=== PATIENT | female | born 2000 | race Caucasian/White ===

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

== ENCOUNTER 2019-05-27 15:58 | Emergency (ER) | payer OTHER ==
[~2019-05-27] VITALS: Ht 172.7 cm; Wt 58.2 kg
[~2019-05-27 15:58] MED LIST changes: +AUGMENTIN250 MG/5 M PO; +PYRIDIUM200 MG PO; +ZOFRAN4 MG PO; +ZOFRAN4 MG SL
--- OUTSIDE RECORDS SUMMARY | 2019-05-27 16:00 | XMS ---
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 Care History Medical/Surgical 12/11/2018 [facility] SET UP APT WITH [facility] FOR PATIENT TO ESTABLISH CARE ON Monday12/17/18 @ 1:45PM. - PATIENT IS AWARE OF THE APT AND AGREED TO THE APT SCHEDULED. E.D. VISIT COUNT (12 MO.) 3 [facility] TOTAL 3 NOTE: Visits indicate total known visits. ED/UCC VISIT TRACKING (12 MO.) 05/27/2019 15:58 [facility] [place] TYPE: Emergency COMPLAINT: - FLANK PAIN 01/25/2019 09:14 [facility] [place] TYPE: Emergency COMPLAINT: - R FLANK PAIN DIAGNOSES: - Acquired absence of other specified parts of digestive tract - Unspecified abdominal pain - Personal history of urinary calculi - Tubulo-interstitial nephritis, not specified as acute or chronic 12/10/2018 10:52 [facility] [place] TYPE: Emergency COMPLAINT: - FLU SYMPTOMS DIAGNOSES: - Personal history of urinary calculi - Acute pharyngitis, unspecified INPATIENT VISIT TRACKING (12 MO.) No inpatient visits to display in this time frame [email or web address]
[2019-05-27] MEDS ORDERED: NORCO 5-325 TA1 EACH PO (19:02)
[2019-05-27] MEDS ORDERED: ZOFRAN4 MG PO (19:02)
[2019-05-27] MEDS ORDERED: FLOMAX0.4 MG PO (19:02)
== END 2019-05-27 19:22 | disposition home or self-care (01) ==
LOC: ED 15:58
DX: N13.2 Hydronephrosis with renal and ureteral calculous obstruction (principal); Z87.442 Personal history of urinary calculi; Z90.49 Acquired absence of other specified parts of digestive tract
CPT/HCPCS: 76775; 80053; 81001; 84703; 85025; 96361; 96374; 96375; 99284-25; J1885; J2270; J2405; J7030

== ENCOUNTER 2021-04-01 08:34 | Emergency (ER) | payer OTHER ==
[~2021-04-01] VITALS: Ht 172.7 cm; Wt 58.1 kg
[2021-04-01] MEDS ORDERED: VENTOLIN HFA18 GM INH (10:44)
== END 2021-04-01 10:56 | disposition home or self-care (01) ==
LOC: ED 08:34
DX: J06.9 Acute upper respiratory infection, unspecified (principal); Z20.822 Contact with and (suspected) exposure to COVID-19
CPT/HCPCS: 71045; 99283-25; C9803; U0003

== ENCOUNTER 2024-06-13 20:31 | Emergency (ER) | payer OTHER ==
[~2024-06-13] VITALS: Ht 172.7 cm; Wt 67.0 kg
[~2024-06-13 20:31] MED LIST changes: +VENTOLIN HFA18 GM INH
[2024-06-13 21:07] LABS: BASOPHILS 0.3 % (0-2); EOSINOPHILS 0.6 % (0-6); HEMATOCRIT 38.3 % (35.0-50.0); HEMOGLOBIN 12.7 g/dL (12.0-18.0); LYMPHOCYTES 26.7 % (24-44); MCH 28.4 (27-36); MCHC 33.1 g/dl (30-36); MONOCYTES 7.9 % (0-12); NEUTROPHILS 64.5 % (39-80); PLATELET COUNT 230 K/uL (140-440); RBC 4.45 M/ul (4.3-5.7); RDW 14.7 (10.5-15.0)
[2024-06-13 21:27] LABS: ALBUMIN 4.3 g/dL (3.4-5.0); ALBUMIN/GLOBULIN RATIO 1.16 (1.1-2.4); ANION GAP 14.2 (7-21); BILIRUBIN, TOTAL 0.4 ng/dL (0.2-1.0); BUN/CREATININE RATIO 14.6 (6.0-28.6); CALCIUM 8.4 mg/dL (8.5-10.1); CREATININE, SERUM 0.89 mg/dL (0.55-1.02); MAGNESIUM 1.9 mg/dL (1.8-2.4); POTASSIUM 3.2 mmol/L (3.5-5.1)
[2024-06-13] MEDS ORDERED: FAMOTIDINE 20 MG/ 2 ML VIAL IV ONE (21:30)
[2024-06-13] MEDS ORDERED: ondansetron HCL 4 MG/2 ML VIAL IV ONE (21:30)
[2024-06-13] MEDS ORDERED: ASPIRIN 81 MG CHEW PO ONE (21:45)
[2024-06-13] MEDS ORDERED: LACTATED RINGER'S 1,000 ML IV ONE (21:45)
[2024-06-13 22:12] VITALS: BP 134/81
--- NOTE | 2024-06-17 09:20 | EKG ---
[facility] [address] [facility] [place], [place] [address] Signed Normal sinus rhythm with sinus arrhythmia Normal ECG No previous ECGs available Confirmed by Donny Cardenas ([id number]) on 06/14/2024 1:12:02 PM Electronically Signed By: DONNY CARDENAS MD 06/17/24 0920 PATIENT NAME: RADHA MENDEZ Electrocardiogram DATE OF : [birth year] PHYSICIAN: DONNY CARDENAS MD REPORT #: [id number] REPORT IS CONFIDENTIAL AND NOT TO BE RELEASED WITHOUT AUTHORIZATION
--- NOTE | 2024-06-17 11:30 | EKG ---
[facility] [address] [facility] [place], [place] [address] Signed Sinus bradycardia Otherwise normal ECG When compared with ECG of 13-JUN-2024 20:38, (Unconfirmed) No significant change was found Confirmed by RIDDHI ROGEL MD ([id number]) on 06/17/2024 11:30:06 AM Electronically Signed By: RIDDHI ROGEL 06/17/24 1130 PATIENT NAME: RADHA MENDEZ Electrocardiogram DATE OF : [birth year] PHYSICIAN: RIDDHI ROGEL REPORT #: [id number] REPORT IS CONFIDENTIAL AND NOT TO BE RELEASED WITHOUT AUTHORIZATION
== END 2024-06-13 23:55 | disposition home or self-care (01) ==
LOC: ED 20:31
PROVIDERS: Internal Medicine
DX: O99.891 Other specified diseases and conditions complicating pregnancy (principal); R07.2 Precordial pain; Z3A.00 Weeks of gestation of pregnancy not specified
CPT/HCPCS: 36415; 71045; 76801; 76817; 80053; 83690; 83735; 84484; 84702; 84703; 85025; 93005; 93010; A9270; J2405; J7121

== ENCOUNTER 2024-07-18 18:25 | Emergency (ER) | payer OTHER ==
[~2024-07-18] VITALS: Ht 172.7 cm; Wt 68.0 kg
[2024-07-18] MEDS ORDERED: PRENATAL VITAM1 EAC5 (18:45)
[2024-07-18 19:05] LABS: BASOPHILS 0.2 % (0-2); EOSINOPHILS 0.9 % (0-6); HEMATOCRIT 36.8 % (35.0-50.0); HEMOGLOBIN 12.3 g/dL (12.0-18.0); LYMPHOCYTES 17.2 % (24-44); MCHC 33.5 g/dl (30-36); MCV 86.4 fl (81-99); MONOCYTES 6.6 % (0-12); NEUTROPHILS 75.1 % (39-80); PLATELET COUNT 218 K/uL (140-440); RBC 4.26 M/ul (4.3-5.7); RDW 14.3 (10.5-15.0)
[2024-07-18 19:22] LABS: ABO A; RH NEGATIVE
[2024-07-18 19:37] LABS: ANION GAP 13.5 (7-21); BUN/CREATININE RATIO 16.17 (6.0-28.6); CREATININE, SERUM 0.68 mg/dL (0.55-1.02); POTASSIUM 3.5 mmol/L (3.5-5.1)
[2024-07-18] MEDS ORDERED: ondansetron HCL 4 MG/2 ML VIAL IV ONE (20:15)
[2024-07-18] MEDS ORDERED: LACTATED RINGER'S 1,000 ML IV ONE (20:15)
[2024-07-18] MEDS ORDERED: KETOROLAC TROMETHAMINE 30 MG/ML VIAL IV ONE (20:15)
[2024-07-18] MEDS ORDERED: RHO(D) IMMUNE GLOBULIN 1,500 UNIT/2 ML ML IM ONE (21:00)
[2024-07-18 21:02] LABS: RHIG VIAL 1 RG23O03-P
[2024-07-18 21:57] VITALS: BP 114/76
== END 2024-07-18 21:57 | disposition home or self-care (01) ==
LOC: ED 18:25
PROVIDERS: Internal Medicine
DX: O20.9 Hemorrhage in early pregnancy, unspecified (principal); Z3A.09 9 weeks gestation of pregnancy
CPT/HCPCS: 36415; 76801; 76817; 80048; 84702; 85025; 86900; 86901; 96374; 96375; 99284-25; J1885; J2405; J2790; J7121